=== PATIENT | male | born 1985 | race Caucasian/White ===

== ENCOUNTER 2017-01-05 21:30 | Emergency (ER) | payer OTHER ==
[2017-01-05 21:40] VITALS: BP 140/70
--- NOTE | 2017-01-05 21:55 | ED ---
GI/ HPI - HPI Summary HPI Summary: 31 yr old male with the complaint of prodrome of outbreak of genital herpes. The patient has sensation that he is about to get an outbreak of herpes in his left inguinal area and penis. He has the slight itching sensation, but no rash , and no other symptoms. The patient had a 3600 mile motorcycle ride to [place] recently. He has no other complaints. - History of Current Complaint Chief Complaint: UCGeneralIllness Time Seen by Provider: 01/05/17 21:40 Stated Complaint: PERSONAL - Allergy/Home Medications Allergies/Adverse Reactions: Allergies Allergy/AdvReac Type Severity Reaction Status Date / Time Amoxicillin Allergy Unknown Unknown Verified 01/05/17 21:39 Reaction Details Home Medications: Home Medications Kirsten D 1 tab DAILY 01/05/17 [History Confirmed 01/05/17] PMH/Surg Hx/FS Hx/Imm Hx Endocrine/Hematology History: Denies: Hx Diabetes, Hx Thyroid Disease Cardiovascular History: Denies: Hx Hypertension Respiratory History: Reports: Hx Asthma - as a child Denies: Hx Chronic Obstructive Pulmonary Disease (COPD) GI History: Denies: Hx Ulcer Infectious Disease History: No Infectious Disease History: Denies: Hx Clostridium Difficile, Hx Hepatitis, Hx Human Immunodeficiency Virus (HIV), Hx of Known/Suspected MRSA, Hx Shingles, Hx Tuberculosis, Hx Known/ Suspected VRE, History Other Infectious Disease, Traveled Outside the in Last 30 Days - Family History Known Family History: Positive: Hypertension - Social History Alcohol Use: Rare Substance Use Type: Reports: None Smoking Status (MU): Never Smoked Tobacco Review of Systems Constitutional: Negative Positive: Other - sensation he might get the herpes rash All Other Systems Reviewed And Are Negative: Yes Physical Exam Triage Information Reviewed: Yes Vital Signs On Initial Exam: Initial Vitals Temp Pulse Resp BP Pulse Ox 99.5 F 79 17 140/70 100 01/05/17 21:37 01/05/17 21:37 01/05/17 21:37 01/05/17 21:37 01/05/17 21:37 Vital Signs Reviewed: Yes Appearance: Positive: Well-Appearing, No Pain Distress Skin: Positive: Warm, Skin Color Reflects Adequate Perfusion Head/Face: Positive: Normal Head/Face Inspection Eyes: Positive: EOMI ENT: Positive: Other - no rash to the mouth or face Neck: Positive: Supple Respiratory/Lung Sounds: Positive: Clear to Auscultation, Breath Sounds Present Cardiovascular: Positive: RRR Male Genital Exam: Positive: normal genitalia, other - no rash Musculoskeletal: Positive: Strength/ROM Intact Neurological: Positive: Sensory/Motor Intact, Alert, Oriented to Person Place, Time, CN Intact II-III Psychiatric: Positive: Normal - [place] Coma Scale Best Eye Response: 4 - Spontaneous Best Motor Response: 6 - Obeys Commands Best Verbal Response: 5 - Oriented Diagnostics - Vital Signs Vital Signs Temp Pulse Resp BP Pulse Ox 01/05/17 21:37 99.5 F 79 17 140/70 100 - Laboratory Lab Statement: Any lab studies that have been ordered have been reviewed, and results considered in the medical decision making process. GIGU Course/Dx - Course Course Of Treatment: 31 yr old male with history of herpes genitalis. No rash now, but will prescribe since he has an idea that he is about to get an outbreak. - Diagnoses Provider Diagnoses: Herpes genitalis in men Discharge - Discharge Plan Condition: Good Disposition: HOME Prescriptions: ValACYclovir (*) [Valtrex 1 GM(*)] 1 gm PO BID #20 tab Patient Education Materials: Genital Herpes Simplex (ED) Referrals: Non Staff,Doctor [Primary Care Provider] - [facility] [Outside]
== END 2017-01-05 22:06 | disposition home or self-care (01) ==
LOC: UCCORT 21:30
DX: A60.01 Herpesviral infection of penis (principal); J45.909 Unspecified asthma, uncomplicated; Z88.0 Allergy status to penicillin
CPT/HCPCS: 99212; G0463

== ENCOUNTER 2017-01-28 17:44 | Emergency (ER) | payer OTHER ==
[2017-01-28 18:15] VITALS: BP 116/69
--- NOTE | 2017-01-28 18:41 | UC ---
Complaint Male HPI - HPI Summary HPI Summary: Pt with recurrent herpes outbreak. Requesting Valtrex refill - History of Current Complaint Chief Complaint: UCGU Stated Complaint: PERSONAL Time Seen by Provider: 01/28/17 18:34 Hx Obtained From: Patient Onset/Duration: Sudden Onset - Recurrent herpes outbreak on the penis 3 days ago., Worse Since - onset with inguinal lymph nodes. Timing: Constant Severity Initially: Moderate Severity Currently: Moderate Location: Penis Character: Burning Aggravating Factor(s): Nothing Alleviating Factor(s): Nothing - Allergies/Home Medications Allergies/Adverse Reactions: Allergies Allergy/AdvReac Type Severity Reaction Status Date / Time Amoxicillin Allergy Rash Verified 01/28/17 18:15 PMH/Surg Hx/FS Hx/Imm Hx Previously Healthy: Yes - Surgical History Surgical History: None - Family History Known Family History: Positive: Cardiac Disease, Hypertension Negative: Diabetes - Social History Occupation: Employed Full-time Lives: Alone Alcohol Use: Rare Substance Use Type: None Smoking Status (MU): Never Smoked Tobacco Have You Smoked in the Last Year: No - Immunization History Most Recent Tetanus Shot: unknown Review of Systems Skin: Rash ENT: Sinus Congestion Is Patient Immunocompromised?: No All Other Systems Reviewed And Are Negative: Yes Physical Exam Triage Information Reviewed: Yes Appearance: Well-Appearing, No Pain Distress, Well-Nourished Vital Signs: Initial Vital Signs Temp 98.6 F 01/28/17 18:06 Pulse 76 01/28/17 18:06 Resp 14 01/28/17 18:06 BP 116/69 01/28/17 18:06 Pulse Ox 100 01/28/17 18:06 Vital Signs Reviewed: Yes Eyes: Positive: Conjunctiva Clear Neck exam: Normal Respiratory Exam: Normal Cardiovascular Exam: Normal Abdomen Description: Positive: Other: - Normal : Penis with no lesions, just slight erythema at the site of the last outbreak. Inguinal LA on the right shotty. Musculoskeletal Exam: Normal Neurological Exam: Normal Psychological Exam: Normal Skin Exam: Normal Complaint Male Course/Dx - Differential Dx/Diagnosis Differential Diagnosis/HQI/PQRI: Epididymitis, Prostatitis, Urinary Tract Infection Provider Diagnoses: Genital herpes Discharge - Discharge Plan Condition: Stable Disposition: HOME Prescriptions: ValACYclovir (*) [Valtrex 500 mg (*)] 500 mg PO BID #10 tab Patient Education Materials: Genital Herpes Simplex (ED), Valacyclovir (By mouth) Additional Instructions: It's ok to start the valtrex even before the rash shows up if you get tingling and burning in the area of an outbreak.
== END 2017-01-28 18:58 | disposition home or self-care (01) ==
LOC: UCCORT 17:44
DX: Z76.0 Encounter for issue of repeat prescription (principal); A60.01 Herpesviral infection of penis; Z88.1 Allergy status to other antibiotic agents
CPT/HCPCS: 99212; G0463

== ENCOUNTER 2017-01-30 08:25 | Emergency (ER) | payer OTHER ==
[2017-01-30 08:59] VITALS: BP 116/67
--- NOTE | 2017-01-30 10:30 | UC ---
General HPI - HPI Summary HPI Summary: PT IS REQUESTING STI TESTING. IS NOT HAVING ANY SYMPTOMS. DENIES PENILE D/C, DYSURIA, ST, FEVER, ABDOMINAL PAIN, SKIN LESIONS. HAS NOT HAD SEX IN OVER 6 MONTHS. THERE IS SOME QUESTION TO HIS EX GIRLFRIENDS FIDELITY SO HE IS HERE FOR TESTING. - History of Current Complaint Chief Complaint: UCSTDScreening Stated Complaint: STD TESTING Time Seen by Provider: 01/30/17 09:59 Hx Obtained From: Patient Current Severity: None - Allergy/Home Medications Allergies/Adverse Reactions: Allergies Allergy/AdvReac Type Severity Reaction Status Date / Time Amoxicillin Allergy Rash Verified 01/30/17 08:51 Home Medications: Home Medications ValACYclovir (*) [Valtrex 500 mg (*)] 500 mg PO BID PRN 01/30/17 [History Confirmed 01/30/17] PMH/Surg Hx/FS Hx/Imm Hx Respiratory History: Asthma - Surgical History Surgical History: None - Family History Known Family History: Positive: Cardiac Disease, Hypertension Negative: Diabetes - Social History Alcohol Use: Rare Substance Use Type: None Smoking Status (MU): Never Smoked Tobacco Have You Smoked in the Last Year: No - Immunization History Most Recent Tetanus Shot: unknown Review of Systems Constitutional: Negative Skin: Negative Respiratory: Negative Cardiovascular: Negative Gastrointestinal: Negative Genitourinary: Negative All Other Systems Reviewed And Are Negative: Yes Physical Exam Triage Information Reviewed: Yes Appearance: Well-Appearing, No Pain Distress, Well-Nourished Vital Signs: Initial Vital Signs Temp 98.3 F 01/30/17 08:52 Pulse 68 01/30/17 08:52 Resp 18 01/30/17 08:52 BP 116/67 01/30/17 08:52 Pulse Ox 100 01/30/17 08:52 Vital Signs Reviewed: Yes Eyes: Positive: Conjunctiva Clear ENT: Positive: Hearing grossly normal Neck: Positive: Supple Respiratory Exam: Normal Cardiovascular Exam: Normal Abdomen Description: Positive: Soft Musculoskeletal: Positive: No Edema Neurological: Positive: Alert Psychological: Positive: Age Appropriate Behavior Skin: Negative: rashes Course/Dx - Differential Dx - Multi-Symptom Provider Diagnoses: STI TESTING Discharge - Discharge Plan Condition: Stable Disposition: HOME Referrals: No Primary Care Phys,NOPCP [Primary Care Provider] - Additional Instructions: YOU HAVE BEEN TESTED FOR HIV, SYPHILIS, HEPATITIS C, GONORRHEA AND CHLAMYDIA TODAY. WE WILL CALL YOU WITH ANY ABNORMAL RESULTS. NO SEX UNTIL ALL RESULTS COME BACK. CALL THE NUMBER BELOW FOR ASSISTANCE IN ESTABLISHING WITH A PCP An additional resource available to assist in finding the appropriate physician for your health care needs is [facility] ([facility]). You may contact them by calling [phone].
[2017-01-31 11:56] LABS: Syphilis Index < 0.1 Index
--- NOTE | 2017-01-31 17:14 | ED ---
Progress - Progress Note Progress Note: CALL PT G/C, SYPHYLLIS, HEP C, AND HIV 1/2 NEGATIVE. Course/Dx - Diagnoses Provider Diagnoses: STD (male)
== END 2017-01-30 10:35 | disposition home or self-care (01) ==
LOC: UCEAST 08:25
DX: A64 Unspecified sexually transmitted disease (principal); Z88.3 Allergy status to other anti-infective agents; J45.909 Unspecified asthma, uncomplicated
CPT/HCPCS: 36415; 86592; 86703; 86803; 87491; 87591; 99211; G0463

== ENCOUNTER 2017-03-28 11:36 | Emergency (ER) | payer OTHER ==
[2017-03-28 11:54] VITALS: BP 129/68
--- NOTE | 2017-03-28 12:48 | UC ---
Skin Complaint HPI - HPI Summary HPI Summary: Pt presents with herpes outbreak. He tells me that contracted genital herpes from a past girlfriend. He recently ran out of medication and does not have a PCP. He is currently having the beginnings of an outbreak and is here for a medication refill. Says he would take a pill everyday and then extra when/if an outbreak occurs. Denies fever, chills, headache, SOB, chest pain, abdominal pain , N/V/D/C, dysuria, hematuria, or penile pain/discharge. - History of Current Complaint Hx Obtained From: Patient Onset/Duration: Gradual Onset Timing: Constant <Tapan Franklin - Last Filed: 03/28/17 13:27> <Viola Handley - Last Filed: 03/29/17 14:37> - History of Current Complaint Chief Complaint: UCGeneralIllness Time Seen by Provider: 03/28/17 12:48 Stated Complaint: PRIVATE ISSUE - Allergy/Home Medications Allergies/Adverse Reactions: Allergies Allergy/AdvReac Type Severity Reaction Status Date / Time Amoxicillin Allergy Rash Verified 01/30/17 08:51 Review of Systems Constitutional: Negative Skin: Negative Eyes: Negative ENT: Other - Ulceration on tip of tongue Respiratory: Negative Cardiovascular: Negative Gastrointestinal: Negative Genitourinary: Negative Motor: Negative Neurovascular: Negative Musculoskeletal: Negative Neurological: Negative Psychological: Negative All Other Systems Reviewed And Are Negative: Yes <Tapan Franklin - Last Filed: 03/28/17 13:27> PMH/Surg Hx/FS Hx/Imm Hx - Additional Past Medical History Additional PMH: HSV1 and HSV2 Previously Healthy: Yes - Surgical History Surgical History: None - Family History Known Family History: Positive: Cardiac Disease, Hypertension Negative: Diabetes - Social History Occupation: Employed Full-time Lives: Alone Alcohol Use: None Substance Use Type: None Smoking Status (MU): Never Smoked Tobacco Have You Smoked in the Last Year: No - Immunization History Most Recent Tetanus Shot: unknown <Tapan Franklin - Last Filed: 03/28/17 13:27> Physical Exam Triage Information Reviewed: Yes Appearance: Well-Appearing, Well-Nourished Vital Signs: Initial Vital Signs Temp 98.2 F 03/28/17 11:49 Pulse 71 03/28/17 11:49 Resp 18 03/28/17 11:49 BP 129/68 03/28/17 11:49 Pulse Ox 100 03/28/17 11:49 Vital Signs Reviewed: Yes Eyes: Positive: Conjunctiva Clear. Negative: Conjunctiva Inflamed, Discharge ENT: Positive: Hearing grossly normal, Pharynx normal, TMs normal, Uvula midline , Other - There is a 6mm tongue ulceration on the left side of his tongue. No erythema, discharge, or bleeding.. Negative: Pharyngeal erythema, Nasal congestion, Nasal drainage, TM bulging, TM dull, TM red, Tonsillar swelling, Tonsillar exudate, Sinus tenderness Neck: Positive: Supple, Nontender, No Lymphadenopathy Respiratory: Positive: Chest non-tender, Lungs clear, Normal breath sounds, No respiratory distress, No accessory muscle use Cardiovascular: Positive: RRR, No Murmur, Pulses Normal Skin: Positive: Other - There are no genital ulcerations or active lesions.. Negative: rashes, significant lesion(s) <Tapan Franklin - Last Filed: 03/28/17 13:27> Vital Signs: Initial Vital Signs Temp 98.2 F 03/28/17 11:49 Pulse 71 03/28/17 11:49 Resp 18 03/28/17 11:49 BP 129/68 03/28/17 11:49 Pulse Ox 100 03/28/17 11:49 <Viola Handley - Last Filed: 03/29/17 14:37> Course/Dx - Course Course Of Treatment: Hx of HSV1 and HSV2. One oral lesion on tongue today. Not interested in any other STD testing today. Will refill his valacyclovir as before - Differential Diagnoses - Skin Complaint Differential Diagnoses: Allergic Reaction, Systemic Illness, Tinea, Urticaria, Viral Exanthem - Diagnoses Provider Diagnoses: HSV1. HSV2 <Tapan Franklin - Last Filed: 03/28/17 13:27> Discharge <Tapan Franklin - Last Filed: 03/28/17 13:27> <Viola Handley - Last Filed: 03/29/17 14:37> - Discharge Plan Condition: Stable Disposition: HOME Prescriptions: ValACYclovir (*) [Valtrex 500 mg (*)] 500 mg PO DAILY #90 tab Patient Education Materials: Genital Herpes Simplex (ED), Oral Herpes Simplex Virus Infections (ED) Referrals: No Primary Care Phys,NOPCP [Primary Care Provider] - Additional Instructions: If you develop a fever, SOB, chest pain, new or worsening symptoms - please call your PCP or go to the ED. Attestation Statement User Type: Provider - I was available for consult. This patient was seen by the PANTERA. The patient was not presented to, seen by, or examined by me. -[place] <Viola Handley - Last Filed: 03/29/17 14:37>
== END 2017-03-28 13:10 | disposition home or self-care (01) ==
LOC: UCEAST 11:36
DX: B00.9 Herpesviral infection, unspecified (principal); K13.70 Unspecified lesions of oral mucosa; Z76.0 Encounter for issue of repeat prescription
CPT/HCPCS: 99212; G0463

== ENCOUNTER 2017-04-16 15:08 | Emergency (ER) | payer OTHER ==
[2017-04-16 15:28] VITALS: BP 126/72
--- NOTE | 2017-04-16 16:18 | ED ---
Throat Pain/Nasal Congestion - HPI Summary HPI Summary: Pt here requesting medical screen to make sure he does not have an oral herpes outbreak at this time. He has h/o oral and genital HSV. After multiple outbreaks , he was started on suppression therapy - has been taking 500mg daily w/o outbreak since (last outbreak was 3 weeks ago). He has no pain, lesions, fever, etc today - simply here to be screened for oral lesions as he's going to visit his girlfriend wants to be sure he's okay to kiss her. He reports he understands he's doing everything possible to keep this virus at bay. Also understands stress/unhealthy lifestyle can trigger outbreaks - trying to be mindful of this as well. - History of Current Complaint Chief Complaint: UCSkin Time Seen by Provider: 04/16/17 16:05 Hx Obtained From: Patient - Allergies/Home Medications Allergies/Adverse Reactions: Allergies Allergy/AdvReac Type Severity Reaction Status Date / Time Amoxicillin Allergy Rash Verified 04/16/17 15:24 PMH/Surg Hx/FS Hx/Imm Hx Previously Healthy: Yes Endocrine/Hematology History: Denies: Hx Diabetes, Hx Thyroid Disease, Autoimmune Disease Cardiovascular History: Denies: Hx Hypertension Respiratory History: Reports: Hx Asthma - as a child Denies: Hx Chronic Obstructive Pulmonary Disease (COPD) GI History: Denies: Hx Ulcer Infectious Disease History: No Infectious Disease History: Reports: History Other Infectious Disease - HSV Denies: Hx Clostridium Difficile, Hx Hepatitis, Hx Human Immunodeficiency Virus (HIV), Hx of Known/Suspected MRSA, Hx Shingles, Hx Tuberculosis, Hx Known/ Suspected VRE, Hx Known/Suspected VRSA, Traveled Outside the [place] in Last 30 Days - Family History Known Family History: Positive: Cardiac Disease, Hypertension Negative: Diabetes - Social History Occupation: Employed Full-time Lives: Alone Alcohol Use: Rare - scotch 2 x year Hx Substance Use: No Substance Use Type: Reports: None Hx Tobacco Use: No Smoking Status (MU): Never Smoked Tobacco Have You Smoked in the Last Year: No Review of Systems Constitutional: Negative Negative: Fever, Chills, Fatigue Eyes: Negative Negative: Photophobia, Blurred Vision, Diplopia, Drainage, Erythema ENT: Negative Negative: Sore Throat, Ear Ache, Nasal Discharge, Other - oral pain/soreness or lesions Cardiovascular: Negative Respiratory: Negative Gastrointestinal: Negative Negative: other - penile pain/lesions Musculoskeletal: Negative Skin: Negative Neurological: Negative Psychological: Normal All Other Systems Reviewed And Are Negative: Yes Physical Exam Triage Information Reviewed: Yes Vital Signs On Initial Exam: Initial Vitals Temp Pulse Resp BP Pulse Ox 98.2 F 68 17 126/72 100 04/16/17 15:25 04/16/17 15:25 04/16/17 15:25 04/16/17 15:25 04/16/17 15:25 Vital Signs Reviewed: Yes Appearance: Positive: Well-Appearing, No Pain Distress, Well-Nourished Skin: Positive: Warm, Dry Head/Face: Positive: Normal Head/Face Inspection Eyes: Positive: Normal, EOMI, Conjunctiva Clear ENT: Positive: Normal ENT inspection, Hearing grossly normal, Pharynx normal - mucosa moist - no lesions/erythema/vesicles along gingiva, buccal mucosa, tongue Neck: Positive: Supple, Nontender, No Lymphadenopathy Respiratory/Lung Sounds: Positive: Breath Sounds Present Cardiovascular: Positive: Normal, RRR Musculoskeletal: Positive: Normal, Strength/ROM Intact Neurological: Positive: Normal, Sensory/Motor Intact, Alert, Oriented to Person Place, Time, CN Intact II-III Psychiatric: Positive: Normal Diagnostics - Vital Signs Vital Signs Temp Pulse Resp BP Pulse Ox 04/16/17 15:25 98.2 F 68 17 126/72 100 - Laboratory Lab Statement: Any lab studies that have been ordered have been reviewed, and results considered in the medical decision making process. EENT Course/Dx - Course Course Of Treatment: Pt here for medical screening w/ h/o HSV oral and genital. No concern at this time for genital lesions - wants to be checked for oral lesions. No sx and no lesions observed. Discussion about continuing suppressive therapy and if he has outbreaks may consider increasing dose from 500mg daily to 1000mg daily - he will discuss w/ PCP if necessary. He is also aware this virus may be shed before and after lesions appear but he is aware of what to watch for w/ lesions onset. No further action at this time. - Diagnoses Provider Diagnoses: HSV infection Discharge - Discharge Plan Condition: Stable Disposition: HOME Patient Education Materials: Oral Herpes Simplex Virus Infections (ED) Referrals: [facility] [Outside] Additional Instructions: Engage in healthy lifestyle choices and continue suppressive regimen of valtrex 500mg daily Follow-up with PCP if you have any further concerns.
== END 2017-04-16 16:34 | disposition home or self-care (01) ==
LOC: UCEAST 15:08
DX: B00.9 Herpesviral infection, unspecified (principal); Z72.89 Other problems related to lifestyle
CPT/HCPCS: 99211; G0463

== ENCOUNTER 2017-05-10 16:18 | Emergency (ER) | payer OTHER ==
[2017-05-10 16:39] VITALS: BP 130/68
--- NOTE | 2017-05-21 07:32 | UC ---
Genoveva Da Silva Gabriel, scribed for Dre Reese MD on 05/10/17 at 1658 . Dental HPI - HPI Summary HPI Summary: This patient is a 31 year old M presenting to [facility] for a herpes evaluation. Patient states his girlfriend is going to be in town and he wants to make sure his isn't infectious. He denies that he is having any outbreak symptoms but is still concerned. Usually he will get a sore on the tip of his tongue but there isnt currently one there. Patient denies fever, chills, and rhinorrhea. Patient takes an antiviral drug for the disease. - History of Current Complaint Chief Complaint: UCGeneralIllness Stated Complaint: SOFT TISSUE Time Seen by Provider: 05/10/17 16:50 Hx From Patient Unobtainable Due To: Dementia Onset/Duration: Still Present, Resolved Pain Intensity: 0 Pain Scale Used: 0-10 Numeric Alleviating Factor(s): Other (see comments) - herpes medication - Allergies/Home Medications Allergies/Adverse Reactions: Allergies Allergy/AdvReac Type Severity Reaction Status Date / Time Amoxicillin Allergy Rash Verified 05/10/17 16:33 PMH/Surg Hx/FS Hx/Imm Hx Other Endocrine History: herpes - Surgical History Surgical History: None - Family History Known Family History: Positive: Cardiac Disease, Hypertension Negative: Diabetes, Renal Disease, Respiratory Disease, Seizure Disorder - Social History Occupation: Employed Full-time Lives: Alone Alcohol Use: Rare Substance Use Type: None Smoking Status (MU): Never Smoked Tobacco Have You Smoked in the Last Year: No - Immunization History Most Recent Tetanus Shot: unknown Review of Systems Constitutional: Negative - fever, chills Respiratory: Negative - rhinorrhea All Other Systems Reviewed And Are Negative: Yes Physical Exam Triage Information Reviewed: Yes Appearance: Well-Appearing, No Pain Distress Vital Signs: Initial Vital Signs Temp 99.0 F 05/10/17 16:34 Pulse 66 05/10/17 16:34 Resp 18 05/10/17 16:34 BP 130/68 05/10/17 16:34 Pulse Ox 100 05/10/17 16:34 Vital Signs Reviewed: Yes Eyes: Positive: Conjunctiva Clear ENT: Positive: Normal ENT inspection, Pharynx normal. Negative: Nasal congestion, Trismus, Hoarse voice Neck: Positive: Supple Respiratory: Positive: Chest non-tender, Lungs clear, Normal breath sounds Cardiovascular: Positive: RRR, No Murmur Abdomen Description: Positive: Nontender Musculoskeletal: Positive: Strength Intact, ROM Intact Neurological: Positive: Alert Psychological: Positive: Normal Response To Family, Age Appropriate Behavior Skin Exam: Normal Dental Complaint Course/Dx - Course Course Of Treatment: 31 yr old with history of herpes to tongue, but no obvious active lesion or symptoms. Patient is on valtrex therapy for prophylaxis. He is aware it is possible to transmit the virus to others even if he does not have active lesions or symptoms. - Differential Dx/Diagnosis Provider Diagnoses: herpes simplex Discharge - Discharge Plan Condition: Good Disposition: HOME Patient Education Materials: Oral Herpes Simplex Virus Infections (ED) Referrals: [facility] [place] [facility] [place]] No Primary Care Phys,NOPCP [Primary Care Provider] - The documentation as recorded by the Genoveva adams Gabriel accurately reflects the service I personally performed and the decisions made by , Dre Reese MD.
== END 2017-05-10 17:10 | disposition home or self-care (01) ==
LOC: UCEAST 16:18
DX: B00.9 Herpesviral infection, unspecified (principal); Z88.1 Allergy status to other antibiotic agents
CPT/HCPCS: 99211; G0463

== ENCOUNTER 2017-05-11 12:06 | Emergency (ER) | payer OTHER ==
[2017-05-11 13:01] VITALS: BP 138/68
--- NOTE | 2017-05-11 13:58 | UC ---
Skin Complaint HPI - HPI Summary HPI Summary: 31 yo male who is asymptomatic presents here requesting an exam to make sure I don't see any evidence of an oral herpetic infection he is on chronic suppressive Rx with valtrex - History of Current Complaint Chief Complaint: UCSkin Time Seen by Provider: 05/11/17 13:44 Stated Complaint: ORAL COMPLAINT Hx Obtained From: Patient Onset/Duration: Other - NA Pain Intensity: 0 Pain Scale Used: 0-10 Numeric Location: Other - NA Aggravating Factor(s): Nothing Alleviating Factor(s): Nothing Associated Signs & Symptoms: Positive: Negative - Allergy/Home Medications Allergies/Adverse Reactions: Allergies Allergy/AdvReac Type Severity Reaction Status Date / Time Amoxicillin Allergy Rash Verified 05/11/17 13:01 Review of Systems Constitutional: Negative Skin: Negative Eyes: Negative ENT: Negative Respiratory: Negative Cardiovascular: Negative Gastrointestinal: Negative Genitourinary: Negative Motor: Negative Neurovascular: Negative Musculoskeletal: Negative Neurological: Negative Psychological: Negative Is Patient Immunocompromised?: No All Other Systems Reviewed And Are Negative: Yes PMH/Surg Hx/FS Hx/Imm Hx Previously Healthy: Yes - Surgical History Surgical History: None - Family History Known Family History: Positive: Cardiac Disease, Hypertension Negative: Diabetes - Social History Alcohol Use: Rare Substance Use Type: None Smoking Status (MU): Never Smoked Tobacco Have You Smoked in the Last Year: No - Immunization History Most Recent Tetanus Shot: unknown Physical Exam Triage Information Reviewed: Yes Appearance: Well-Appearing, No Pain Distress, Well-Nourished Vital Signs: Initial Vital Signs Temp 98.5 F 05/11/17 12:57 Pulse 65 05/11/17 12:57 Resp 18 05/11/17 12:57 BP 138/68 05/11/17 12:57 Vital Signs Reviewed: Yes Eyes: Positive: Conjunctiva Clear ENT: Positive: Hearing grossly normal, TMs normal, Uvula midline. Negative: Nasal congestion, Nasal drainage, Tonsillar swelling, Tonsillar exudate, Trismus , Muffled voice, Hoarse voice, Dental tenderness Dental Exam: Normal Neck exam: Normal Neck: Positive: Supple, Nontender Cardiovascular: Positive: RRR, No Murmur Abdominal Exam: Normal Musculoskeletal: Positive: ROM Intact, No Edema Neurological Exam: Normal Neurological: Positive: Alert Psychological Exam: Normal Skin Exam: Normal Course/Dx - Diagnoses Provider Diagnoses: normal exam. no evidence of young-labial herpes Discharge - Discharge Plan Condition: Stable Disposition: HOME Referrals: No Primary Care Phys,NOPCP [Primary Care Provider] - Additional Instructions: I saw no evidence of oral herpes on today's exam return for any problems call for any questions
== END 2017-05-11 14:05 | disposition home or self-care (01) ==
LOC: UCCORT 12:06
DX: Z71.1 Person with feared health complaint in whom no diagnosis is made (principal)
CPT/HCPCS: 99212; G0463

== ENCOUNTER 2017-05-31 16:22 | Emergency (ER) | payer OTHER ==
[2017-05-31 19:11] VITALS: BP 129/76
--- NOTE | 2017-05-31 19:22 | UC ---
Skin Complaint HPI - HPI Summary HPI Summary: 31M with skin concern. PT HERE TO HAVE MOUTH CHECKED, CURRENTLY ON VALTREX FOR HERPES, PT STATES HE HAS NO S/S AT THIS TIME. Going to visit his GF in [place] and wanted to ensure no sores present. He states no sesnastion / prodromal Sx. his outbreaks exclusively on the tongue when they occur .has had for 6 years as well as genital HSV. last tongue outbreak 3 mo and last genital outbreak 10 mo. no fever. no other concerns. [ End ] - History of Current Complaint Chief Complaint: UCGeneralIllness Time Seen by Provider: 05/31/17 19:12 Stated Complaint: PERSONAL Hx Obtained From: Patient Timing: Constant Onset Severity: Moderate Pain Intensity: 0 - Allergy/Home Medications Allergies/Adverse Reactions: Allergies Allergy/AdvReac Type Severity Reaction Status Date / Time Amoxicillin [Amoxicillin] Allergy Rash Verified 05/31/17 19:05 Review of Systems Constitutional: Negative Skin: Other - no outbreaks Is Patient Immunocompromised?: No All Other Systems Reviewed And Are Negative: Yes PMH/Surg Hx/FS Hx/Imm Hx Previously Healthy: Yes - Surgical History Surgical History: None - Family History Known Family History: Positive: Cardiac Disease, Hypertension Negative: Diabetes - Social History Alcohol Use: Rare Substance Use Type: None Smoking Status (MU): Never Smoked Tobacco Have You Smoked in the Last Year: No - Immunization History Most Recent Tetanus Shot: unknown Physical Exam Triage Information Reviewed: Yes Appearance: Well-Appearing, No Pain Distress, Well-Nourished Vital Signs: Initial Vital Signs Temp 99 F 05/31/17 19:06 Pulse 60 05/31/17 19:06 Resp 14 05/31/17 19:06 BP 129/76 05/31/17 19:06 Pulse Ox 100 05/31/17 19:06 Vital Signs Reviewed: Yes Eye Exam: Normal ENT Exam: Normal ENT: Positive: Normal ENT inspection, Hearing grossly normal, Pharynx normal. Negative: Pharyngeal erythema, Tonsillar swelling, Tonsillar exudate Respiratory Exam: Normal Cardiovascular Exam: Normal Neurological Exam: Normal Psychological Exam: Normal Skin Exam: Normal Course/Dx - Course Course Of Treatment: He just wanted to double check nothing to be concerned about as he is to see his gf and does this when he goes to see her. does not need refill of meds. advised to estblish care with PCP. no lesions, no outbreak of note at this time - Diagnoses Provider Diagnoses: HSV 1/2 Discharge - Discharge Plan Condition: Good Disposition: HOME Patient Education Materials: Oral Herpes Simplex Virus Infections (ED) Referrals: No Primary Care Phys,NOPCP [Primary Care Provider] - If Needed Additional Instructions: You have no signs or symptoms of any outbreak when you had your oral inspection
== END 2017-05-31 19:28 | disposition home or self-care (01) ==
LOC: UCCORT 16:22
DX: B00.9 Herpesviral infection, unspecified (principal)
CPT/HCPCS: 99211; G0463

== ENCOUNTER 2017-06-27 15:03 | Emergency (ER) | payer OTHER ==
[2017-06-27 17:01] VITALS: BP 134/75
--- NOTE | 2017-06-27 17:14 | UC ---
UC General HPI - HPI Summary HPI Summary: pt states has a hx of genital herpes. he was told a spot on his tongue was oral herpes from the same. he has a visit with his girlfriend and wants to ensure no current oral lesions. has no current s/s's. - History of Current Complaint Stated Complaint: ORAL COMPLAINT Time Seen by Provider: 06/27/17 17:00 Hx Obtained From: Patient Current Severity: None Pain Intensity: 0 Associated Signs & Symptoms: Positive: Other - no rash or oral lesions - Allergy/Home Medications Allergies/Adverse Reactions: Allergies Allergy/AdvReac Type Severity Reaction Status Date / Time amoxicillin Allergy Intermediate Rash Verified 06/27/17 17:01 PMH/Surg Hx/FS Hx/Imm Hx - Additional Past Medical History Additional PMH: Genital herpes - Surgical History Surgical History: None - Family History Known Family History: Positive: Cardiac Disease, Hypertension Negative: Diabetes - Social History Occupation: Employed Full-time Lives: Alone Alcohol Use: Rare Substance Use Type: None Smoking Status (MU): Never Smoked Tobacco Have You Smoked in the Last Year: No - Immunization History Most Recent Tetanus Shot: unknown Vaccination Up to Date: Yes Review of Systems Constitutional: Negative Skin: Negative Eyes: Negative ENT: Negative Respiratory: Negative Cardiovascular: Negative Gastrointestinal: Negative Genitourinary: Negative Motor: Negative Neurovascular: Negative Musculoskeletal: Negative Neurological: Negative Psychological: Negative Is Patient Immunocompromised?: No All Other Systems Reviewed And Are Negative: Yes Physical Exam Triage Information Reviewed: Yes Appearance: Well-Appearing Vital Signs: Initial Vital Signs Temp 98.3 F 06/27/17 16:56 Pulse 65 06/27/17 16:56 Resp 16 06/27/17 16:56 BP 134/75 06/27/17 16:56 Pulse Ox 100 06/27/17 16:56 Eyes: Positive: Conjunctiva Clear ENT: Positive: Normal ENT inspection, Pharynx normal, TMs normal Neck: Positive: Supple, Nontender, No Lymphadenopathy Respiratory: Positive: Lungs clear, Normal breath sounds Cardiovascular: Positive: RRR, No Murmur, Pulses Normal Abdomen Description: Positive: Nontender, No Organomegaly, Soft Bowel Sounds: Positive: Present Musculoskeletal: Positive: ROM Intact Neurological: Positive: Alert Psychological: Positive: Age Appropriate Behavior Skin Exam: Normal Course/Dx - Course Course Of Treatment: pt has no oral lesions. - Differential Dx - Multi-Symptom Provider Diagnoses: Normal exam Discharge - Discharge Plan Condition: Stable Disposition: HOME Patient Education Materials: Genital Herpes Simplex (ED), Oral Herpes Simplex Virus Infections (ED) [facility], [Z.CONVERSION PROVIDER TYPE] -
== END 2017-06-27 17:19 | disposition home or self-care (01) ==
LOC: UCCORT 15:03
DX: Z03.89 Encounter for observation for other suspected diseases and conditions ruled out (principal)
CPT/HCPCS: 99211; G0463

== ENCOUNTER 2017-07-26 15:12 | Emergency (ER) | payer OTHER ==
[2017-07-26 15:40] VITALS: BP 128/73
--- NOTE | 2017-07-26 15:45 | UC ---
Skin Complaint HPI - HPI Summary HPI Summary: 31 year old male . Has HSV and on meds. He just wants to double check nothing to be concerned about as he is to see his gf and does this when he goes to see her. does not need refill of meds. advised to establish care with PCP previously and once again today. no lesions, no outbreak of note at this time. He thinks he had an outbreak about 10 days ago about when he proposed to his GF and who is now his fiance. no active lesions at this time in the mouth, tongue or genitals. has had outbreak in the genitals about 8 mo ago . - History of Current Complaint Chief Complaint: [place] Time Seen by Provider: 07/26/17 15:41 Stated Complaint: PERSONAL Hx Obtained From: Patient Current Severity: None Pain Intensity: 0 Aggravating Factor(s): Nothing Alleviating Factor(s): Nothing - Allergy/Home Medications Allergies/Adverse Reactions: Allergies Allergy/AdvReac Type Severity Reaction Status Date / Time amoxicillin Allergy Intermediate Rash Verified 07/26/17 15:35 Review of Systems Skin: Negative Is Patient Immunocompromised?: No All Other Systems Reviewed And Are Negative: Yes PMH/Surg Hx/FS Hx/Imm Hx Previously Healthy: Yes - HSV in the past and on valtrex - Surgical History Surgical History: None - Family History Known Family History: Positive: Cardiac Disease, Hypertension Negative: Diabetes - Social History Occupation: Employed Full-time Lives: With Family Alcohol Use: Rare Substance Use Type: None Smoking Status (MU): Never Smoked Tobacco Have You Smoked in the Last Year: No - Immunization History Most Recent Tetanus Shot: unknown Vaccination Up to Date: Yes Physical Exam Triage Information Reviewed: Yes Appearance: Well-Appearing, No Pain Distress, Well-Nourished Vital Signs: Initial Vital Signs Temp 98.5 F 07/26/17 15:35 Pulse 69 07/26/17 15:35 Resp 12 07/26/17 15:35 BP 128/73 07/26/17 15:35 Pulse Ox 100 07/26/17 15:35 Vital Signs Reviewed: Yes Eye Exam: Normal ENT Exam: Normal ENT: Positive: Normal ENT inspection Dental Exam: Normal Dental: Positive: Other: - no ulcerated lesions. no vesicular lesions noted. Negative: Abscess @ Neck exam: Normal Neck: Positive: 1 Respiratory Exam: Normal Cardiovascular Exam: Normal Abdominal Exam: Normal Musculoskeletal Exam: Normal Neurological Exam: Normal Psychological Exam: Normal Skin Exam: Normal Course/Dx - Course Course Of Treatment: when he has outbreak been using 1500 mg daily and he is aware he needs to increase that dose advised to est care with PCP. no outbreak noted at this time. his fiance to visit him this weekend. he is aware of safe sexual practices - Diagnoses Provider Diagnoses: HSV 1/2 Discharge - Sign-Out/Discharge Documenting (check all that apply): Discharge - Discharge Plan Condition: Good Disposition: HOME Patient Education Materials: Oral Herpes Simplex Virus Infections (ED) Referrals: No Primary Care Phys,NOPCP [Primary Care Provider] - (in the future please establish with a PCP ) Additional Instructions: You do not appear to have any active lesions of concern at this time. Please establish care with a PCP in the future - Billing Disposition and Condition Condition: GOOD Disposition: HOME
== END 2017-07-26 16:15 | disposition home or self-care (01) ==
LOC: UCCORT 15:12
DX: B00.9 Herpesviral infection, unspecified (principal); Z88.3 Allergy status to other anti-infective agents
CPT/HCPCS: 99211; G0463

== ENCOUNTER 2017-08-05 16:57 | Emergency (ER) | payer OTHER ==
[2017-08-05 18:10] VITALS: BP 142/82
--- NOTE | 2017-08-05 18:45 | UC ---
Complaint Male HPI - HPI Summary HPI Summary: 31 yo male here with no complaints he desires suppressive valtrex prescription denies any lesions has had 4 outbreaks in 3 mos no hx renal insufficiency has no PMD is moving to [place] in fall - History of Current Complaint Chief Complaint: UCGeneralIllness Stated Complaint: PERSONAL Time Seen by Provider: 08/05/17 17:55 Hx Obtained From: Patient Onset/Duration: Other - NA Pain Intensity: 0 Pain Scale Used: 0-10 Numeric Associated Signs And Symptoms: Positive: Negative - Allergies/Home Medications Allergies/Adverse Reactions: Allergies Allergy/AdvReac Type Severity Reaction Status Date / Time amoxicillin Allergy Intermediate Rash Verified 08/05/17 18:05 PMH/Surg Hx/FS Hx/Imm Hx Previously Healthy: Yes - Surgical History Surgical History: None - Family History Known Family History: Positive: Cardiac Disease, Hypertension Negative: Diabetes - Social History Alcohol Use: None Substance Use Type: None Smoking Status (MU): Never Smoked Tobacco Have You Smoked in the Last Year: No - Immunization History Most Recent Tetanus Shot: unknown Vaccination Up to Date: Yes Review of Systems Constitutional: Negative Skin: Negative Eyes: Negative ENT: Negative Respiratory: Negative Cardiovascular: Negative Gastrointestinal: Negative Genitourinary: Negative Motor: Negative Neurovascular: Negative Musculoskeletal: Negative Neurological: Negative Psychological: Negative Is Patient Immunocompromised?: No All Other Systems Reviewed And Are Negative: Yes Physical Exam Triage Information Reviewed: Yes Appearance: Well-Appearing, No Pain Distress, Well-Nourished Vital Signs: Initial Vital Signs Temp 99.8 F 08/05/17 18:06 Pulse 81 08/05/17 18:06 Resp 18 08/05/17 18:06 BP 142/82 08/05/17 18:06 Pulse Ox 100 08/05/17 18:06 Vital Signs Reviewed: Yes Eyes: Positive: Conjunctiva Clear ENT Exam: Normal Dental Exam: Normal Neck: Positive: Supple, Nontender, No Lymphadenopathy Respiratory: Positive: Lungs clear, Normal breath sounds, No respiratory distress, No accessory muscle use Cardiovascular: Positive: RRR, No Murmur Musculoskeletal: Positive: ROM Intact, No Edema Neurological: Positive: Alert Psychological Exam: Normal Skin Exam: Normal Complaint Male Course/Dx - Course Course Of Treatment: advised of increased BP. states he just got off phone with his soon to be in-laws and is stressed - Differential Dx/Diagnosis Provider Diagnoses: request for Valtrex. elevated BP without diagnosis of HTN Discharge - Sign-Out/Discharge Documenting (check all that apply): Discharge - Discharge Plan Condition: Stable Disposition: HOME Prescriptions: ValACYclovir (*) [Valtrex 1 GM(*)] 1 gm PO DAILY #30 tab Referrals: No Primary Care Phys,NOPCP [Primary Care Provider] - Additional Instructions: call for any questions return for any problems - Billing Disposition and Condition Condition: STABLE Disposition: HOME
== END 2017-08-05 18:37 | disposition home or self-care (01) ==
LOC: UCCORT 16:57
DX: Z76.0 Encounter for issue of repeat prescription (principal); R03.0 Elevated blood-pressure reading, without diagnosis of hypertension; Z88.3 Allergy status to other anti-infective agents
CPT/HCPCS: 99212; G0463

== ENCOUNTER 2017-09-25 16:03 | Emergency (ER) | payer OTHER ==
[2017-09-25 17:09] VITALS: BP 130/66
--- NOTE | 2017-09-25 18:11 | UC ---
Skin Complaint HPI - HPI Summary HPI Summary: PATIENT REPORTS A KNOWN HISTORY OF ORAL HERPES WITH LESIONS ON THE TIP OF HIS TONGUE. STATES HE RAN OUT OF HIS SUPPRESSIVE VALACYCLOVIR 2-3 DAYS AGO AND THEN DEVELOPED A LESION ON HIS TONGUE CONSISTENT WITH AN OUTBREAK. HAS AN APPOINTMENT WITH A NEW PCP SCHEDULED FOR 10/09/17. IS HERE LOOKING FOR REFILL ON HIS DAILY SUPPRESSIVE VALACYCLOVIR WELL AN ACUTE TREATMENT REGIMEN. - History of Current Complaint Chief Complaint: UCGeneralIllness Time Seen by Provider: 09/25/17 17:14 Stated Complaint: ORAL COMPLAINT Hx Obtained From: Patient Onset/Duration: Sudden Onset, Lasting Days, Still Present Timing: Constant Onset Severity: Moderate Current Severity: Moderate Pain Intensity: 0 Pain Scale Used: 0-10 Numeric Location: Other - TONGUE Character: Pain Aggravating Factor(s): Touch Alleviating Factor(s): Nothing Associated Signs & Symptoms: Positive: Negative - Allergy/Home Medications Allergies/Adverse Reactions: Allergies Allergy/AdvReac Type Severity Reaction Status Date / Time amoxicillin Allergy Intermediate Rash Verified 09/25/17 17:05 Home Medications: Home Medications LORazepam TAB(*) [Ativan 0.5 MG TAB (*)] 0.5 mg PO DAILY PRN 09/25/17 [History Confirmed 09/25/17] Review of Systems Constitutional: Negative Skin: Other - LESION ON TONGUE ENT: Negative Respiratory: Negative Cardiovascular: Negative Gastrointestinal: Negative All Other Systems Reviewed And Are Negative: Yes PMH/Surg Hx/FS Hx/Imm Hx - Additional Past Medical History Additional PMH: ORAL AND GENITAL HERPES Psychological History: Anxiety - Surgical History Surgical History: None - Family History Known Family History: Positive: Cardiac Disease, Hypertension Negative: Diabetes - Social History Alcohol Use: None Substance Use Type: None Smoking Status (MU): Former Smoker Have You Smoked in the Last Year: No - Immunization History Most Recent Tetanus Shot: unknown Vaccination Up to Date: Yes Physical Exam Triage Information Reviewed: Yes Appearance: Well-Appearing, No Pain Distress, Well-Nourished Vital Signs: Initial Vital Signs Temp 99.7 F 09/25/17 17:01 Pulse 63 09/25/17 17:01 Resp 16 09/25/17 17:01 BP 130/66 09/25/17 17:01 Pulse Ox 100 09/25/17 17:01 Vital Signs Reviewed: Yes Eyes: Positive: Conjunctiva Clear ENT: Positive: Hearing grossly normal Neck: Positive: Supple Respiratory: Positive: No respiratory distress, No accessory muscle use Cardiovascular: Positive: Pulses Normal Abdomen Description: Positive: Soft Musculoskeletal: Positive: No Edema Neurological: Positive: Alert Psychological: Positive: Age Appropriate Behavior Skin: Positive: Other - 4MM SHALLOW AREA OF DESQUAMATION TIP OF TONGUE. Course/Dx - Diagnoses Provider Diagnoses: ORAL HERPES Discharge - Sign-Out/Discharge Documenting (check all that apply): Discharge/Admit/Transfer - Discharge Plan Condition: Stable Disposition: HOME Prescriptions: Valacyclovir HCl [Valacyclovir] 2 gm PO BID #4 tab Valacyclovir HCl [Valacyclovir] 1 gm PO DAILY #30 tab Patient Education Materials: Oral Herpes Simplex Virus Infections (ED) Referrals: No Primary Care Phys,NOPCP [Primary Care Provider] - Additional Instructions: KEEP YOUR APPOINTMENT WITH YOUR NEW PCP IN MID SEPTEMBER. TAKE THE HIGHER DOSE VALACYCLOVIR FOR YOUR ACUTE OUTBREAK AND THEN START THE ONCE DAILY SUPPRESSIVE DOSE AFTER THAT. NO INTIMATE CONTACT WHILE YOU HAVE AN OUTBREAK. IF THE SUPPRESSIVE DOSE DOES NOT REDUCE YOUR FREQUENCY OF OUTBREAKS OVER THE NEXT SEVERAL MONTHS CONSIDER AN APPT WITH A SOCIAL SERVICES MANAGER TO EVALUATE FOR OTHER UNDERLYING CAUSES OF THE LESION ON YOUR TONGUE. - Billing Disposition and Condition Condition: STABLE Disposition: HOME
== END 2017-09-25 17:56 | disposition home or self-care (01) ==
LOC: UCCORT 16:03
DX: B00.9 Herpesviral infection, unspecified (principal); F41.9 Anxiety disorder, unspecified; Z88.3 Allergy status to other anti-infective agents; Z87.891 Personal history of nicotine dependence; Z86.19 Personal history of other infectious and parasitic diseases
CPT/HCPCS: 99212; G0463